=== PATIENT | male | born 1965 | race Caucasian/White ===

== ENCOUNTER 2019-10-29 14:12 | Emergency (ER) | payer MEDICAID ==
[2019-10-29] MEDS ORDERED: Acetaminophen/HYDROcodone 325-5 MG Tab PO ONE (14:17)
[2019-10-29] MEDS ORDERED: Acetaminophen/HYDROcodone 325-5 MG Tab ONE (14:18)
[2019-10-29] MEDS ORDERED: Bacitracin Oint 1 GM U/D Packet TOP ONE (14:52)
--- NOTE | 2019-10-29 14:52 | EDM.PDOC ---
ED HPI GENERAL MEDICAL PROBLEM - General Chief Complaint: Laceration Stated Complaint: LACERATION LT ARM Time Seen by Provider: 10/29/19 14:39 Source of Information: Reports: Patient History Limitations: Reports: No Limitations - History of Present Illness INITIAL COMMENTS - FREE TEXT/NARRATIVE: HISTORY AND PHYSICAL: History of present illness: Patient is a 54-year-old male who presents to the emergency room with complaints of a laceration to the left hand. He states that he was using a knife when it slipped resulting in the laceration. He was unable to control the bleeding without applying pressure and felt he needed to come in for stitches. Denies any numbness or tingling of the extremity. Good flexion and extension of all fingers. Denies any other systemic complaints. Unsure of last tetanus update Review of systems: As per history of present illness and below otherwise all systems reviewed and negative. Past medical history: As per history of present illness and as reviewed below otherwise noncontributory. Surgical history: As per history of present illness and as reviewed below otherwise noncontributory. Social history: See social history for further information Family history: As per history of present illness and as reviewed below otherwise noncontributory. Physical exam: General: Well developed and well nourished 54-year-old male. Alert and oriented. Nontoxic-appearing and in no acute distress. HEENT: Atraumatic, normocephalic, pupils equal and reactive bilaterally, negative for conjunctival pallor or scleral icterus, mucous membranes moist, TMs normal bilaterally, throat clear, neck supple, nontender, trachea midline. No drooling or trismus noted. No meningeal signs. No hot potato voice noted. Lungs: Clear to auscultation, breath sounds equal bilaterally, chest nontender. Heart: S1S2, regular rate and rhythm without overt murmur Abdomen: Soft, nondistended, nontender. Negative for masses or hepatosplenomegaly. Negative for costovertebral tenderness. Skin: 4.5 cm laceration to the left webspace between the first and second digit , arterial bleed noted- controlled with direct pressure. Appears to have no tendon or muscle involvement. Otherwise skin is intact, warm, dry. No lesions or rashes noted. Extremities: SEE SKIN, moves all extremities per self without difficulty or deficits, negative for cords or calf pain. Neurovascular unremarkable. Neuro: Awake, alert, oriented. Cranial nerves II through XII unremarkable. Cerebellum unremarkable. Motor and sensory unremarkable throughout. Exam nonfocal. Notes: Upon assessment of the patient' laceration, it is noted that he has arterial bleeding. Unable to visualize the site without application of a tourniquet. Dr Souza was involved and assisted in this case. 1% lidocaine with epinephrine was used to anesthetize the lacerated area. Tourniquet was applied at 1415 just above the elbow. Patient tolerated well. Was able to visualize for vessels which vessel ligation was performed with 4-0 dissolvable suture. Area was explored in a bloodless field. 1430 the tourniquet was gently released and assessed for any additional bleeding that had not been identified. Bleeding is controlled. Thorough irrigation with wound wash and chlorhexidine was used. 4- 0, #9 interrupted sutures were placed for wound closure. Tdap updated. Nonstick bacitracin dressing was applied. We discussed signs and symptoms that would prompt him to return to the emergency room. Supportive care measures were reviewed and discussed. Voices understanding and is agreeable to plan of care. Denies any further questions or concerns at this time. Diagnostics: None Therapeutics: Lidocaine with epi, Renick, bacitracin, tetanus Prescription: None Impression: Complicated laceration repair Arterial bleed Plan: 1. Keep the area clean and dry. Continue to monitor for signs of infection. Sutures to be removed in 7-10 days. 2. Tylenol and/or ibuprofen as needed for pain management. 3. Please follow-up with your primary care provider in the next 1-2 days. Return to the ED as needed and as discussed. Definitive disposition and diagnosis as appropriate pending reevaluation and review of above. left hand Pain Score (Numeric/FACES): 8 - Related Data Allergies Allergy/AdvReac Type Severity Reaction Status Date / Time No Known Allergies Allergy Verified 10/29/19 14:15 Past Medical History Cardiovascular History: Reports: Hypertension - Infectious Disease History Infectious Disease History: Reports: Chicken Pox - Past Surgical History Cardiovascular Surgical History: Reports: Vascular Surgery Other Cardiovascular Surgeries/Procedures: ART bleed repair Social & Family History - Family History Family Medical History: Noncontributory - Tobacco Use Smoking Status *Q: Never Smoker - Alcohol Use Days Per Week of Alcohol Use: 7 Number of Drinks Per Day: 2 Total Drinks Per Week: 14 - Recreational Drug Use Recreational Drug Use: No ED ROS GENERAL - Review of Systems Review Of Systems: Comprehensive ROS is negative, except as noted in HPI. ED EXAM, SKIN/RASH Exam: See Below (See dictation) ED SKIN PROCEDURES - Laceration/Wound Repair Left Hand Appearance: Subcutaneous, Linear, Clean Distal NVT: Neuro & Vascular Intact, No Tendon Injury, Other (Aterial involvement) Anesthetic Type: Local Local Anesthesia - Lidocaine (Xylocaine): 1% with EPI Local Anesthetic Volume: 4cc Skin Prep: Chlorhexidine (Hibiciens), Providone-Iodine (Betadine), Sterile Drape , Other Saline Irrigation (cc's): 500 Exploration/Debridement/Repair: Wound Explored, In a Bloodless Field, Explored to Base, No Foreign Material Found Closed with: Sutures, Other (4 vessel tie offs with dissolvable suture) Lac/Wound length In cm: 4.5 Suture Size: 4-0 # of Sutures: 9 Drain Placement: No Sterile Dressing Applied: Provider Tetanus Status Addressed: Yes Complications: Yes Complication Description: See NOTE Course - Vital Signs Last Recorded V/S: Last Vital Signs Temp 96.5 F L 10/29/19 14:15 Pulse 110 H 10/29/19 14:15 Resp 18 10/29/19 14:15 BP 156/90 H 10/29/19 14:15 Pulse Ox 99 10/29/19 14:15 - Orders/Labs/Meds Orders: Active Orders 24 hr Category Date Time Status Vaccines to be Administered [RC] PER UNIT ROUTINE Care 10/29/19 14:54 Ordered Meds: Medications Discontinued Medications Generic Name Dose Route Start Last Admin Trade Name Sam PRN Reason Stop Dose Admin Hydrocodone Bitart/Acetaminophen 2 tab 10/29/19 14:17 10/29/19 14:21 Renick 325-5 Mg PO 10/29/19 14:18 2 tab ONETIME ONE Administration Hydrocodone Bitart/Acetaminophen Confirm 10/29/19 14:18 10/29/19 14:22 Renick 325-5 Mg Administered 10/29/19 14:19 Not Given Dose 2 tab .ROUTE .STK-MED ONE Bacitracin 1 dose 10/29/19 14:52 Bacitracin Oint 1 Gm TOP 10/29/19 14:53 ONETIME ONE Diphtheria/Tetanus/Acell Pertussis 0.5 ml 10/29/19 14:53 Adacel IM 10/29/19 14:54 .ONCE ONE Departure - Departure Time of Disposition: 15:13 Disposition: Home, Self-Care 01 Clinical Impression: Laceration of hand, complicated Qualifiers: Encounter type: initial encounter Laterality: left Qualified Code(s): S61.412A - Laceration without foreign body of left hand, initial encounter - Discharge Information Instructions: Laceration Care, Adult, [id number] Referrals: Travis Olivarez MD [Primary Care Provider] - Forms: ED Department Discharge Additional Instructions: The following information is given to patients seen in the emergency department who are being discharged to home. This information is to outline your options for follow-up care. We provide all patients seen in our emergency department with a follow-up referral. The need for follow-up, as well as the timing and circumstances, are variable depending upon the specifics of your emergency department visit. If you don't have a primary care physician on staff, we will provide you with a referral. We always advise you to contact your personal physician following an emergency department visit to inform them of the circumstance of the visit and for follow-up with them and/or the need for any referrals to a consulting specialist. The emergency department will also refer you to a specialist when appropriate. This referral assures that you have the opportunity for follow-up care with a specialist. All of these measure are taken in an effort to provide you with optimal care, which includes your follow-up. Under all circumstances we always encourage you to contact your private physician who remains a resource for coordinating your care. When calling for follow-up care, please make the office aware that this follow-up is from your recent emergency room visit. If for any reason you are refused follow-up, please contact the [facility] at and asked to speak to the emergency department charge nurse. [facility] [address] [place] [id number] [facility] [address] [place] [address] 1. Keep the area clean and dry. Continue to monitor for signs of infection. Sutures to be removed in 7-10 days. 2. Tylenol and/or ibuprofen as needed for pain management. 3. Please follow-up with your primary care provider in the next 1-2 days. Return to the ED as needed and as discussed. Sepsis Event Note - Evaluation Sepsis Screening Result: No Definite Risk - Focused Exam Vital Signs: Vital Signs Temp Pulse Resp BP Pulse Ox 10/29/19 14:15 96.5 F L 110 H 18 156/90 H 99 Date Exam was Performed: 10/29/19 Time Exam was Performed: 14:54 - My Orders Last 24 Hours: My Active Orders 10/29/19 14:54 Vaccines to be Administered [RC] PER UNIT ROUTINE - Assessment/Plan Last 24 Hours: My Active Orders 10/29/19 14:54 Vaccines to be Administered [RC] PER UNIT ROUTINE
[2019-10-29] MEDS ORDERED: Diphtheria,Pertussis(Acell),Tetanus Vaccine 0.5 ML Syringe IM ONE (14:53)
== END 2019-10-29 15:29 | disposition home or self-care (01) ==
LOC: MW.ED 14:12
DX: S65.912A Laceration of unspecified blood vessel at wrist and hand level of left arm, initial encounter (principal); S61.412A Laceration without foreign body of left hand, initial encounter; I10 Essential (primary) hypertension; Z23 Encounter for immunization; W26.0XXA Contact with knife, initial encounter
CPT/HCPCS: 12002; 90471; 90715; 99282; A9270; 13121